=== PATIENT | female | born 1955 | race Caucasian/White ===

== ENCOUNTER → 2019-03-01 | Outpatient (REF) | payer MEDICARE, OTHER | LOC: M LAB LCGH 09:10 | PROVIDERS: ATTEND Physician Assistant | DX: D48.5 Neoplasm of uncertain behavior of skin (principal) ==

== ENCOUNTER → 2021-12-29 | Outpatient (REF) | payer MEDICARE, OTHER | LOC: M SFHCDERM 14:14 | PROVIDERS: ATTEND Physician Assistant | DX: L57.0 Actinic keratosis (principal) ==

== ENCOUNTER → 2024-05-28 | Outpatient (REF) | payer MEDICARE, OTHER | LOC: M SFHCDERM 18:21 | PROVIDERS: ATTEND Physician Assistant | DX: D49.2 Neoplasm of unspecified behavior of bone, soft tissue, and skin (principal); L82.1 Other seborrheic keratosis ==